=== PATIENT | female | born 1965 | race Caucasian/White ===

== ENCOUNTER → 2016-12-22 | Outpatient (CLI) | payer OTHER | LOC: BMCIMAGING 10:05 | PROVIDERS: ATTEND Nurse Practitioner Adult Health | DX: J40 Bronchitis, not specified as acute or chronic (principal) ==

== ENCOUNTER → 2017-01-09 | Outpatient (CLI) | payer OTHER | LOC: BMCIMAGING 11:35 | PROVIDERS: ATTEND Emergency Medicine | DX: S59.912A Unspecified injury of left forearm, initial encounter (principal); Y93.66 Activity, soccer ==